=== PATIENT | female | born 1950 | race Caucasian/White ===

== ENCOUNTER → 2018-05-29 | Day surgery (SDC) | payer OTHER ==
[~2018-05-29] MED LIST: 0.9 % SODIUM CHLORIDE 10 ML DISP.SYRIN. IV PRN; ALBUTEROL SULFATE 2.5 MG/3 ML NEBU. NEB PRN; BUSP10TA PO; BUTA1CAP31 PO; EPINEPHrine 1 MG/ML VIAL ONE; IV RINGERS,LACTATED 1000ML 1,000 ML IV SCH; LIDOCAINE 1% Multi-Dose 50 ML VIAL. INJ PRN; LIDOCAINE 2% VISCOUS 100 ML BOTTLE. ONE; LIDOCAINE 2% VISCOUS 15 ML SOLUTION. MM PRN; LIDOCAINE 4% TOPICAL 50 ML SOLUTION. MM PRN; LIPITOR80 MG PO; PROPOFOL 20 ML IV ONE; SERT50TA PO; TOPI50TA8 PO
[2018-05-29 13:52] VITALS: BP 140/63
--- NOTE | 2018-05-29 13:58 | OP ---
DATE OF SURGERY: 05/29/2018 PROCEDURE: Bronchoscopy. INDICATIONS FOR PROCEDURE: Right middle lobe atelectasis, tobacco smoke exposure. DESCRIPTION OF PROCEDURE: The patient underwent a bronchoscopy. Prior to the procedure, the potential risks and benefits of the procedure were explained to the patient and she was agreeable. A timeout was performed. She had topical anesthesia of lidocaine DICTATION ENDS HERE. Please note this dictation was terminated by the dictation service prematurely. The dictation was repeated. Please refer to the other bronchoscopy note of the same day for complete note --GR ROSSANA SMITH MD DR: SCOTT/margarette JOB#: [id number] / [id number] YAZMIN
--- NOTE | 2018-05-29 14:03 | OP ---
DATE OF SURGERY: 05/29/2018 PROCEDURE: Bronchoscopy. INDICATIONS FOR PROCEDURE: Right middle lobe atelectasis, tobacco smoke exposure. DESCRIPTION OF PROCEDURE: The potential risks and benefits of the procedure were explained to the patient and she was agreeable. A timeout procedure was performed. Topical anesthesia was applied with inhaled lidocaine and lidocaine jelly. Anesthesia with propofol was given per the anesthesia service. Please refer to their note for more details. The bronchoscope was introduced into the right side of the nose. The vocal cords were visualized and moved normally. 5 mL of 2% lidocaine were instilled on the vocal cords. The bronchoscope was then advanced through the vocal cords and another 5 mL of 1% lidocaine was instilled into the trachea. Another 5 mL of 1% lidocaine was instilled into the right middle lobe bronchus. The airways were inspected. There was some mild easy collapsibility of the airways. The left upper lobe and left lower lobe were without any endobronchial lesions. The right upper lobe and right lower lobe likewise were without any endobronchial lesions. All of these airways were inspected to the segmental level. The right middle lobe was entered. There was a calcified density typical of a broncholith that was obstructing the right middle lobe. Pictures were taken. A bronchoalveolar lavage was obtained of the right middle lobe. The patient tolerated the procedure well. Her vital signs including oxygen saturation were monitored throughout the procedure and were stable throughout the procedure. IMPRESSION: Right middle lobe atelectasis secondary to broncholith. COMPLICATIONS: None. PLAN: The patient will follow up with me in the clinic. ROSSANA SMITH MD DR: SCOTT/margarette JOB#: [id number] / [id number] YAZMIN
--- NOTE | 2018-05-31 09:11 | PATHOLOGY ---
Note [facility] Accession Number: [id number] TESTS RESULT FLAG UNITS REF RANGE LAB Clinician Provided Cytology Information No. of containers..01 Other (Miscellaneous) Source: RML BAL DIAGNOSIS: RML BAL NEGATIVE FOR MALIGNANT CELLS. NORMAL BRONCHIAL CELLS AND MACROPHAGES ARE PRESENT. Signed out by: Jonathon Ortiz MD, Pathologist NPI- [id number] Performed by: Zainab Apodaca, Cash Manager ([facility]) Gross description: 01 10ML, RED, CLOUDY /LCS FLAG LEGEND: L-Low Normal,H-High Normal,LL-Alert Low,HH-Alert High <-Panic Low,>-Panic High,A-Abnormal,AA-Critical Abnormal Performed at: [address] [place] [address] Betito Manzo MD, [address] [place] [address] Jonathon Ortiz MD, A courtesy copy of this report has been sent to [phone]. Performed at: [address], [place], [place] [id number] MD Betito Manzo MD Phone: [phone]
== END | disposition home or self-care (01) ==
LOC: SURG 12:04
PROVIDERS: ATTEND Internal Medicine Pulmonary Disease
DX: J98.11 Atelectasis (principal); J98.09 Other diseases of bronchus, not elsewhere classified; G43.909 Migraine, unspecified, not intractable, without status migrainosus; J43.9 Emphysema, unspecified; F17.210 Nicotine dependence, cigarettes, uncomplicated; K58.9 Irritable bowel syndrome, unspecified; Z80.0 Family history of malignant neoplasm of digestive organs
CPT/HCPCS: 31624; 94640; J2704; J7613; 31622; 88112; J0171